=== PATIENT | male | born 1970 | race Caucasian/White ===

== ENCOUNTER → 2022-04-30 14:35 | Outpatient (CLI) | payer OTHER, SELFPAY ==
--- NOTE | 2022-04-30 | DI.RAD.S_ITS ---
PROCEDURE: XR HAND RT 2V INDICATIONS: Fracture of unspecified phalanx of right index finger, initi TECHNIQUE: 2 views of the hand(s) acquired. COMPARISON: None. FINDINGS: Bones: No fractures or dislocations. Carpal bones are normally aligned. No suspicious bony lesions. Soft tissues: No suspicious soft tissue calcifications. IMPRESSION: No fracture. No osseous lesion. If symptoms and/or clinical suspicion for pathology persists, further assessment with repeat radiographs (7-10 days) or advanced imaging (e.g. CT, MRI or bone scan) should be considered. Dictated by: Rosemary Hoff MD, PhD on 04/30/2022 at 15:05 Approved by: Rosemary Hoff MD, PhD on 04/30/2022 at 15:07
[2022-04-30 16:27] LABS: Add Manual Diff / Slide Review NO; Basophils Absolute Auto 0 /uL (0-100); Basophils Percent Auto 0.7 % (0-2); Eosinophils Absolute Auto 100 /uL (0-450); Eosinophils Percent Auto 2.4 % (2-4); Hematocrit 40.2 % (41-53); Hemoglobin 13.7 g/dL (13.5-17.5); Lymphocytes Absolute Auto 1300 /uL (1100-4500); Lymphocytes Percent Auto 30.7 % (25-40); Mean Corpuscular HGB Conc 34.2 % (30-36); Mean Corpuscular Hemoglobin 28.9 PG (26-34); Mean Corpuscular Volume 84.5 fL (80-100); Monocytes Absolute Auto 400 /uL (0-900); Monocytes Percent Auto 10.8 % (3-14); Neutrophils Absolute Auto 2300 /uL (1500-7000); Neutrophils Percent Auto 55.4 % (50-75); Platelet Count 240 X10^3/uL (150-400); Red Blood Cell Count 4.76 X10^6/uL (4.5-5.9); Red Cell Distribution Width 13.2 % (11.6-14.8); White Blood Cell Count 4.1 X10^3/uL (4.5-11.0)
== END ==
PROVIDERS: Referring Provider Chiropractor; Visit Provider Chiropractor
DX: S62.600A Fracture of unspecified phalanx of right index finger, initial encounter for closed fracture (principal); D72.819 Decreased white blood cell count, unspecified
CPT/HCPCS: 36415; 73120; 85025